=== PATIENT | female | born 2000 | race Caucasian/White ===

== ENCOUNTER 2025-04-03 02:41 | Emergency (ER) | payer OTHER, SELFPAY ==
--- NOTE | ~2025-04-03 | XR_ITS ---
CLINICAL HISTORY: fall 3 views right ankle Comparison: None provided Findings: There is lateral soft tissue swelling. There is no fracture or dislocation. Joint spaces appear normal. Impression: No osseous abnormality. This document has been electronically signed by: Tl Rider MD on 04/03/2025 03:52:57
[2025-04-03 02:45] VITALS: BP 128/73; PULSE 100; RESP 15; TEMP 36.6; O2SAT 99; BMI 27.4
--- NOTE | 2025-04-03 03:12 | PC.NURSE ---
Assumed care of pt, presents with right ankle pain after jumping and rolling ankle while outside, +2 pedal pulses, no headstrike, -LOC, swelling to the right ankle, unable to bear weight, aaox4
--- OUTSIDE RECORDS SUMMARY | 2025-04-03 03:17 | XMS_ITS | Clinical Summary ---
Author Organization [facility] Address [address] [place] [address] Phone Care Team Providers Care Pipe Fitter Maintenance Name Role Phone Fatimah Pinto MD Primary Care Provider [phone] Allergies Active Allergy Reactions Criticality Noted Date Comments Amoxicillin Medium 04/23/2024 Covid-19 Vaccine, Bivalent, Mrna (Moderna) Wheezing High 11/04/2022 Latex Rash Medium 02/16/2021 Penicillins Rash Medium 11/16/2005 Vancomycin Itching Medium 11/25/2023 IV Medications medroxyPROGESTE Pramod 150 mg/mL injection Inject 1 mL (150 mg total) into the shoulder, thigh, or buttocks every 3 (three) months. Active fexofenadine (TRAN) 180 mg tablet Take 1 tablet (180 mg total) by mouth 1 (one) time each day. 90 tablet 1 5 Active acetaminophen (TYLENOL) 500 mg tablet Take 2 tablets (1,000 mg total) by mouth every 8 (eight) hours if needed for mild pain. 60 tablet 5 Active ibuprofen (ADVIL,MOTRIN) 600 mg tablet Take 1 tablet (600 mg total) by mouth every 8 (eight) hours if needed for moderate pain. 30 tablet 5 Active oxyCODONE (ROXICODONE) 5 mg immediate release tablet Take 1 tablet (5 mg total) by mouth every 4 (four) hours if needed for severe pain. Max Daily Amount: 30 mg 10 tablet 5 Active fluticasone propionate (FLONASE) 50 mcg/actuation nasal spray ADMINISTER 1 SPRAY INTO EACH NOSTRIL 2 TIMES A DAY. 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 Kidney function is normal. Her risk of developing end stage kidney disease because of it is quite low. She is at risk for hyperfiltration injury and we discussed risk factor for CKD that could affect a solitary kidney. Follow kidney function and electrolytes urine protein to creatinine ratio Avoid NSAID Last Assessment & Plan: 1-20 u/s for /incidential finding/ref adult nephrology Encounters Date Type Department Care Team Description 03/27/2025 3:45 PM EDT Treatment [facility] [address] [place] [phone] Gabbie Bajwa OT Left wrist pain (Primary Dx) 03/19/2025 3:45 PM EDT Treatment [facility] Occupational Therapy [address] [place] [phone] Gabbie Bajwa OT Left wrist pain (Primary Dx) 03/18/2025 9:30 AM EDT Office Visit Orthopedic Surgery - [place] 175 [facility] [address] [place] [phone] Kathrine White MD Subluxation of left extensor carpi ulnaris tendon, sequela (Primary Dx) 03/12/2025 9:00 AM EDT Treatment [facility] Occupational Therapy [address] [place] [phone] Gabbie Bajwa OT Left wrist pain (Primary Dx) 03/07/2025 9:00 AM EDT Treatment [facility] Occupational Therapy [address] [place] [phone] Gabbie Bajwa OT Left wrist pain (Primary Dx) 03/05/2025 Telephone Orthopedic [facility] [address] [facility] [address] [place] [phone] Kathrine White MD 02/28/2025 9:15 AM EDT Treatment [facility] Occupational Therapy [address] [place] [phone] Gabbie Bajwa OT Left wrist pain (Primary Dx) 02/20/2025 9:00 AM EDT Treatment [facility] Occupational Therapy [address] [place] [phone] Gabbie Bajwa OT Left wrist pain (Primary Dx) 02/12/2025 11:00 AM EDT Evaluation [facility] Occupational Therapy [address] [place] [phone] Gabbie Bajwa OT Left wrist pain (Primary Dx); Subluxation of left extensor carpi ulnaris tendon, subsequent encounter; Surgery follow-up 02/12/2025 Plan of Care Documentation [facility] Occupational Therapy [address] [place] [phone] 02/05/2025 9:30 AM EDT Office Visit Orthopedic [address] [phone] Kathrine White MD Extensor carpi ulnaris tendinitis (Primary Dx); Subluxation of left extensor carpi ulnaris tendon, subsequent encounter; Surgery follow-up 01/17/2025 2:00 PM EDT Office Visit [address] [phone] Sondra Keen PA Surgery follow-up (Primary Dx) from Last 3 Months Immunizations Name Administration Dates Next Due DTaP (Infanrix) 6wks to less than 7yo ,01/13/2004,01/04/2003,11/12,2002 DTaP / Hib 01/13/2004 AJcK-HLR-DIN (Pentacel) 2mo to less than 5yo 01/13/2004,01/04/2003,2002,09/07 HPV 9-valent (Gardisil) 9yo to less than 46yo 03/09/2016 HPV, Quadrivalent 05/03/2014 Hepatitis B Pediatric (Enger ix B; Recombivax HB) to less than 20 yo 04/23/2003,2002,2002 Hib (HbOC) 01/04/2003,2002,2002 IPV Inactivated polio (Ipol) 6wks and older 10/18/2007,07/28/2003,2002,09/07 Influenza trivalent, 0.5mL, preservative free (Fluarix; FluLaval; Fluzone) ages 6mo and older (Afluria) 3 years and older 07/25/2019,04/04/2015 Influenza trivalent, with pr eservative (Fluzone; Afluria) 6mo and older 07/01/2005 MMR, measles mumps and rubel la Live (Priorix; M-M-R II) 12mo and older 10/18/2007,01/13/2004 Meningococcal MCV4P 07/25/2019,09/06/2013 Pneumococcal Conjugate Vacci ne, 7 Valent 07/26/2003,01/04/2003,2002,09/07 Tdap Tetanus diptheria acell ular pertussis (Boostrix; Adacel) 7yo and older 11/16/2019,09/06/2013 Varicella live (Varivax) 12m o and older 10/18/2007,07/26/2003 Surgical History Surgery Date Site/Laterality Comments OTHER SURGICAL HISTORY 09/11/2014 Bilateral PROCEDURE: AZ TONSILLECTOMY & ADENOIDECTOMY AGE 14/> OTHER SURGICAL HISTORY 07/11/2014 PROCEDURE: AZ WEDGE EXCISION SKIN NAIL FOLD OTHER SURGICAL HISTORY 09/2020 PROCEDURE: AZ EXCISION VAGINAL SEPTUM OTHER SURGICAL HISTORY Right PROCEDURE: HISTORICAL ARM SURGERY WRIST SURGERY 10/17/2023 Right PROCEDURE: HISTORICAL WRIST SURGERY; COMMENT: stabilization of right extensor carpi ulnaris tendon SECTION, LOW TRANSVERSE NO PAST SURGERIES WRIST SURGERY 12/19/2024 Left ECU stabilization/arthroscopy left wrist Medical History Medical History Date Comments Unspecified family circumstance DX:Unspecified family circumstance; COMMENT: 2002 53A Acute suppurative otitis med ia without spontaneous rupture of eardrum DX:Acute suppurative otitis media without spontaneous rupture of eardrum Wheezing DX:Wheezing Undiagnosed cardiac murmurs 06/14 DX:U ndiagnosed cardiac murmurs; COMMENT: functional murmur Panic attack x2 admitted wing hosp DX:Panic a ttack; COMMENT: overnight Lingular pneumonia 07-16 DX:Lingular p neumonia Acute sinusitis, unspecified 04/04/2006 DX: Acute sinusitis, unspecified Acute suppurative otitis med ia without spontaneous rupture of ear drum 04/04/2006 DX:Acute suppurative otitis media without spontaneous rupture of ear drum; COMMENT: IMO update Difficulty with family 11/17/2017 DX:Diffic ulty with family; COMMENT: 11-25 DCF 53 A active case Anxiety and depression DX:Anxiet y and depression Unilateral congenital absenc e of kidney 10/18/2019 DX:Unilateral congenital absence of kidney Family History Medical History Relation Name Comments No Known Problems Brother No Known Problems Father No Known Problems Maternal Grandfather ne thony met No Known Problems Maternal Grandmother No Known Problems Mother Ovarian cancer Other 1 mat GGM Cervical cancer Other 2 a couple of my mothers cousins Allergies Paternal Grandfather Asthma Paternal Grandfather Dementia Paternal Grandfather No Known Problems Paternal Grandmother s ick from smoking all the time Breast cancer Neg Hx Uterine cancer Neg Hx Relation Name Status Comments Brother Alive Lamine 01/22/05 Father Alive Yahir 12/21/76/ smoker Maternal Grandfather Other Maternal Grandmother Alive Mother Alive Steph jamison 06/12/82 /parents living together 2001/ 2005/mom remarried 09/14 Other 1 mat GGM Alive Other 2 Paternal Grandfather Paternal Grandmother Social History Tobacco Use Types Packs/Day Years Used Date Smoking Tobacco: Never Smokeless Tobacco: Never Tobacco Cessation:Counseling Given: Not Answered Alcohol Use Standard Drinks/Week Comments Yes 0 (1 standard drink = 0.6 oz pur e alcohol) social Comments No Sex and Gender Information Value Date Recorded Sex Assigned at Female 02/14/2025 12:53 PM EDT Legal Sex Female 7:07 AM EST Gender Identity Female 02/14/2025 12:53 PM EDT Sexual Orientation Choose not to disclose 2024 12:53 PM EDT Obstetrics History Last Filed Vital Signs Vital Sign Reading Time Taken Comments Blood Pressure 126/73 12/19/2024 6:47 PM EDT Pulse 97 12/19/2024 6:47 PM EDT Temperature 36.7 C (98 F) 12/19/2024 6:47 PM EDT Respiratory Rate 18 12/19/2024 6:47 PM EDT Oxygen Saturation 94% 12/19/2024 6:47 PM EDT Inhaled Oxygen Concentration - - Weight 68 kg (150 lb) 03/18/2025 9:25 AM EDT Height 157.5 cm (5' 2 ) 03/18/2025 9:25 AM EDT Body Mass Index 27.44 03/18/2025 9:25 AM EDT Plan of Treatment Upcoming Encounters Date Type Department Care Team (Late st Contact Info) Description 04/03/2025 3:45 PM EDT Treatment [facility] [address] [phone] Gabbie Bajwa, OT 04/10/2025 3:45 PM EDT Treatment [facility] [address] [place] [phone] Gabbie Bajwa, OT 04/17/2025 3:45 PM EDT Treatment [facility] [address] [phone] Gabbie Bajwa, OT 04/24/2025 3:45 PM EDT Treatment [facility] [address] [phone] Gabbie Bajwa, OT 04/29/2025 9:30 AM EDT Office Visit Orthopedic Surgery - [place] 175 [facility] [address] [place] [phone] Kathrine White MD [address] [place] [phone] 06/11/2025 4:30 PM EST Office Visit Adult Medicine [facility] [address] [place] [phone] Fatimah Pinto MD [address] [place] [phone] Health Maintenance Due Date Last Done Comments Meningococcal B Vaccine (1 of 2 - Standard) 2018 HIV Screening 06/19/2022 Hepatitis C Screening 06/19/2022 Social Influencers of Health Screening 06/19/2022 Depression Screening 07/11/2024 Influenza Vaccine (#1) 2025 , 04/04/2015, 07/01/2005 Gonorrhea/Chlamydia Screening 12/07/2025 12/07/2024, 12/31/2020 Cervical Cancer Screening: Pap Smear 06/10/2026 06/10/2023, 06/10/2023, 06/10/2023 DTaP,Tdap,and Td Vaccines (8 - Td or Tdap) 11/15/2029 11/16/2019, 09/06/2013, 10/18/2007, Additional history exists Cholesterol Screening (Lipid Panel) 12/07/2029 12/07/2024, 11/29/2023, 11/29/2023 RSV Immunization Adult Patients (1 - 1-dose 75+ series) 2077 Hepatitis B Vaccines Completed 04/23/2003, 2002, 2002 Pneumococcal Vaccine: Pediatrics (0 to 5 Years) and At-Risk Patients (6 to 49 Years) Completed 07/26/2003, 01/04/2003, 2002, Additional history exists HIB Vaccines Completed 01/13/2004, 11/2003, 01/04/2003, Additional history exists IPV Vaccines Completed 10/18/2007, 11/2003, 07/28/2003, Additional history exists MMR Vaccines Completed 10/18/2007, 01/13/2004 Varicella Vaccines Completed 10/18/2007, 07/26/2003 HPV Vaccines Completed 03/09/2016, 05/03/2014 Meningococcal ACWY Vaccine Completed 07/25/2019, COVID-19 Vaccine Discontinued 03/10/2021, 02/10/2021 Hepatitis A Vaccines Aged Out No long er eligible based on patient's age to complete this topic RSV Immunization Patients Under 20 months Aged Out No longer eligible based on patient's age to complete this topic Goals Goal Patient Goal Type Associated Problems Recent Progress Patient-Stated? Author <enter goal here> General Yes Gabbie Bajwa, OT Note: OT PATIENT GOAL REGAIN FULL USE LEFT UE AND RTW OT STGS 8 TO 12 VISITS General On track( 025 4:45 PM EDT) No Gabbie Bajwa, OT Note: # 1 PARTICIPATE IN SCAR MANAGEMENT TO HAVE NO ADHERENCE/ MILD 03/19 # 2 IMPROVE LEFT SHOULDER FLEXION FROM 135 TO 160 DEGREES FOR OVERHEAD REACH # 3 IMPROVE LEFT ELBOW EXTENSION FROM - 20 TO A NEUTRAL 0 DEGREES UPON REACH # 4 IMPROVE LEFT SUPINATION FROM 20 TO 60 DEGREES TO RECEIVE ITEMS INTO PALM # 5 IMPROVE WRIST EXTENSION FROM 25 TO 60 DEGREES WITH GOOD STRENGTH TO WEIGHTBEAR # 6 ACHIEVE LEFT SURVEY RESEARCH PROFESSOR TO AT LEAST 32 POUNDS = 50 PERCENT OF THE RIGHT/ AT 25 POUNDS ON 03/19 Medical Devices Implanted Type Area Professor Of Geology Device Identifier Shelf Expiration Date Model / Serial / Lot [place] Sut Quick Mini 3-0 Orth - Sn/A - [id number] Implanted:Qty: 1 on 12/19/2024 by Kathrine White MD at [facility] [employer] Sports Med Left: Wrist JNJ DEPUY MITEK 01/07/2027 [id number] / N/A / [id number] [place] Sut Quick+ Mini Orthcrd #0 Orthocord W/Drillbit - Sn/A - [id number] Implanted:Qty: 1 on 12/19/2024 by Kathrine White MD at [facility] [employer] Sports Med Left: Wrist JNJ DEPUY MITEK 05/10/2027 [id number] / N/A / [id number] Procedures Procedure Name Priority Date/Time Associated Diagnosis Comments SPLINT APPLICATION Routine 01/17/2025 2: 31 PM EDT Surgery follow-up LIPID PANEL WITH REFLEX TO DIRECT LDL Routine 12/07/2024 9:16 AM EDT Routine physical examination CHLAMYDIA TRACHOMATIS AND NEISSERIA GONORRHOEAE PCR Routine 12/07/2024 9:15 AM EDT Screen for sexually transmitted diseases HM HPV Routine 06/10/2023 from Last 3 Months or Most Recently Relevant to Health Maintenance Results * Splint Application (01/17/2025 2:31 PM EDT) Narrative Kathrine White MD - 01/17/2025 2:31 PM EDT ARLEEN Townsend 01/17/2025 2:37 PM Splint Application Date/Time: 01/17/2025 2:31 PM Performed by: ARLEEN Townsend Authorized by: ARLEEN Townsend Injury Location details: left elbow Pre-procedure assessment Distal perfusion: normal Distal sensation: normal Range of motion: normal Procedure Immobilization: splint Splint/Brace type: sugar tong Supplies used: cotton padding and Ortho-Glass us Sondra BACON IN CLINIC/BEDSIDE ORDERABLES Final Result * (ABNORMAL) Lipid panel with reflex to direct LDL (12/07/2024 9:16 AM EDT) Cholesterol 161 0 - 200 mg/dL LAB CHEMISTRY METHOD 12/07/2024 1:23 PM EDT [facility] Triglycerides 83 0 - 150 mg/dL LAB CHEMISTRY METHOD 12/07/2024 1:23 PM EDT [facility] HDL 42 >=40 mg/dL LAB CHEMISTRY METHOD 12/07/2024 1:23 PM EDT [facility] LDL Calculated 102(H) 0 - 100 mg/dL LAB CHEMISTRY METHOD 12/07/2024 1:23 PM EDT [facility] VLDL Cholesterol Radu 16.6 mg/dL LAB CHEMISTRY METHOD 12/07/2024 1:23 PM EDT [facility] Non HDL Chol. (LDL+VLDL) 119 <145 mg/dL LAB CHEMISTRY METHOD 12/07/2024 1:23 PM EDT [facility] Chol/HDL Ratio 3.8 0.0 - 4.4 LAB CHEMISTRY METHOD 12/07/2024 1:23 PM EDT [facility] Blood Venous blood specimen / Unknown Venipuncture / Unknown 12/07/2024 9:16 AM EDT 12/07/2024 9:16 AM EDT Kiesha BACON LAB BLOOD ORDERABLES Final Res ult [facility] [address] [place] [address], [place] [phone] * Chlamydia trachomatis and Neisseria gonorrhoeae molecular study (12/07/2024 9:15 AM EDT) [facility] Neisseria gonorrhoeae PCR Negative Negative LAB MOLECULAR DIAGNOSTICS METHOD 12/08/2024 9:37 AM EDT [facility] Chlamydia trachomatis PCR Negative Negative LAB MOLECULAR DIAGNOSTICS METHOD 12/08/2024 9:37 AM EDT [facility] Urine Urine specimen from urethra / Unknown Non-blood Collection / Unknown 12/07/2024 9:15 AM EDT 12/07/2024 9:15 AM EDT Kiesha BACON LAB MICROBIOLOGY - GENERAL ORD ERABLES Final Result [facility] [address] [place] [address], [place] [phone] * Cervical Cancer Screening: HPV (06/10/2023) [facility] Cervical Cancer Screening: HPV No interpreta tion,abstr acted Historical Provider HEALTH MAINTENANCE Final Result from Last 3 Months or Most Recently Relevant to Health Maintenance Insurance [employer] Advance Directives * Full Code - Default (Latest Code Status on File) Date Activated Date Inactivated Comments 12/19/2024 11:28 AM 12/19/2024 9:48 PM This is ord er is used when code status has not been discussed with the patient, or code status is otherwise unknown/unconfirmed To update the patient's code status, place a code status order. Do not modify or discontinue any currently active code status orders. Care Teams Pipe Fitter Maintenance Relationship Specialty Start Date End Date Fatimah Pinto MD [address] [place] [phone] PCP - General 11/01/22
--- NOTE | 2025-04-03 05:03 | ED_ITS ---
HPI - Extremity Injury (Lower) General Chief Complaint: Extremity Injury, Lower Stated Complaint: right ankle injury Time Seen by Provider: 04/03/25 04:48 Source: patient Mode of arrival: ambulatory Limitations: no limitations History of Present Illness ED Provider: Dru BACON HPI Narrative: The patient is a 24-year-old female presenting to the ED reporting approximately 8 hours ago she was [place] when she landed awkwardly on her right lower extremity suffering an inversion injury with subsequent swelling of the right lateral malleolus. The patient reports she has been able to bear weight but only with severe pain. The patient denies any fall to the ground, head strike, or other acute injury, denies previous injury or surgical intervention of the affected extremity. The patient has not taken any medication for pain prior to arrival in the ED. Related Data Allergies Allergy/AdvReac Type Severity Reaction Status Date / Time amoxicillin Allergy Anaphylaxis Verified 04/03/25 02:47 Penicillins Allergy Anaphylaxis Verified 04/03/25 02:47 vancomycin Allergy Hives Verified 04/03/25 02:47 Review of Systems Review of Systems: Yes all other systems are reviewed and are negative PMFSH Social History Social History Advance Directives: No Do you have a plan to hurt others: No Plan Physical Exam Vital Signs: Vital Signs: Last Vital Signs Temp 97.8 F 04/03/25 02:45 Pulse 100 04/03/25 02:45 Resp 15 04/03/25 02:45 BP 128/73 04/03/25 02:45 Pulse Ox 99 04/03/25 02:45 O2 Del Method Room Air 04/03/25 02:45 BMI result Body Mass Index 27.4 CONSTITUTIONAL: The patient appears non-toxic, well nourished and in no acute distress. Vital signs as documented. HEAD: Atraumatic, normocephalic. EYES: EOMs grossly intact, pupils equal, conjunctiva clear, no exudate. ENT: Nares patent, no discharge. Airway patent, no audible stridor, visible mucosa is pink and moist without noted lesions. NECK: trachea is midline, no obvious masses or gross abnormalities. CHEST: Symmetric movement, normal appearance. LUNGS: Non-labored work of breathing. CARDIAC: No evidence of hypoperfusion. ABDOMEN: Nondistended, no obvious injury. : Deferred. EXTREMITIES: There is swelling with mild contusion of the inferior aspect of the lateral malleolus, distal CSM intact, 2+ DP/PT pulses. No crepitus or bony tenderness. No calf tenderness. Moves all other extremities spontaneously without reported pain. No other obvious injury or deformity noted. NEURO: Alert and oriented x3, CN II-XII appear grossly intact. Cerebellar Functioning grossly intact. Speech clear and appropriate. SKIN: Warm, dry, color appropriate. No rashes or lesions noted. Medical Decision Making Medical Decision Making MDM Narrative: 5:18 AM 04/03/2025 (Peter BACON): The patient is a 24-year-old female presenting to the ED reporting approximately 8 hours ago she was [place] when she landed awkwardly on her right lower extremity suffering an inversion injury with subsequent swelling of the right lateral malleolus. The patient reports she has been able to bear weight but only with severe pain. The patient denies any fall to the ground, head strike, or other acute injury, denies previous injury or surgical intervention of the affected extremity. The patient has not taken any medication for pain prior to arrival in the ED. On exam patient has swelling with a mild contusion of the inferior aspect of the lateral malleolus, distal CSM intact, 2+ DP/PT pulses. No crepitus or bony tenderness. No calf tenderness. The patient's x-ray shows no evidence of acute fracture. Patient is likely suffering from a high-grade sprain/strain, we will treat with crutches, boot, and weight-bearing as tolerated. We will discharge with ANSARI, supportive care, and PCP follow up. Admission/Observation Consideration of admission/observation: Escalation of care including admission/observation considered Radiology Impression Discussion of test interpretation with radiology: I have reviewed the radiologist's reading. Radiologist Impression: CLINICAL HISTORY: fall 3 views right ankle Comparison: None provided Findings: There is lateral soft tissue swelling. There is no fracture or dislocation. Joint spaces appear normal. Impression: No osseous abnormality. This document has been electronically signed by: Tl Rider MD on 04/03/2025 03:52:57 Dictated By: Tl Rider MD Signed By: <Electronically signed by Tl Rider MD in OV> 04/03/25 0354 Discharge Plan Discharge Clinical Impression: Ankle sprain and strain Patient Disposition: Home, Self-Care Instructions: Ankle Sprain (ED), Crutch Instructions (ED), P.R.I.C.E. Treatment (ED), Ankle Strain (ED) Additional Instructions: Thank you for choosing [facility]'s Emergency Department for your care today. Thankfully your x-ray shows no evidence of acute fracture. At this time there is no indication for admission to the hospital or continued ED observation, and it is safe to discharge you home. Your exam is consistent with a high-grade ankle sprain/strain. Please wear the boot and use the crutches provided to bear weight only as tolerated. You should take alternating (staggered) doses of ibuprofen 600mg and Tylenol 1000mg every 4 hours as needed for any additional pain. Please elevate and rest the injured area, and apply ice for 20 minutes every hour. We have treated you with a lidocaine patch, if you find this provides you significant relief additional patches can be purchased at any local pharmacy without a prescription. Please follow up with your primary care physician for re-evaluation, additional management of your symptoms, and continued preventative care. If you do not have a primary care physician, please call the [facility] at [phone] to establish a new primary care physician. While waiting to establish your new primary care physician, you can call our Walk-in Care Clinic at [phone] for non-emergency needs. Please return to the emergency department if you develop a severe or sudden change in your symptoms, a fever over 100.4 that does not improve with Tylenol or Ibuprofen, recurrent vomiting, or any other new or worsening symptoms or concerns. Referrals: Fatimah Pinto MD [Primary Care Provider, Internal Medicine] Clinical Impression: Ankle sprain and strain Stand Alone Forms: Work/School Release Print Language: Georgian
[2025-04-03] MEDS: Lidocaine 4 % Patch ADH..PATCH 1 PATCH TRANSDERMA (05:24)
[2025-04-03 05:50] VITALS: BP 130/73; PULSE 86; RESP 15; TEMP 36.6; O2SAT 99
== END 2025-04-03 06:07 | disposition home or self-care (01) ==
PROVIDERS: Emergency Provider Emergency Medicine; PCP Internal Medicine
DX: S93.401A Sprain of unspecified ligament of right ankle, initial encounter (principal); X50.1XXA Overexertion from prolonged static or awkward postures, initial encounter; X50.9XXA Other and unspecified overexertion or strenuous movements or postures, initial encounter; Y93.41 Activity, dancing; Y92.89 Other specified places as the place of occurrence of the external cause; Y99.8 Other external cause status
CPT/HCPCS: 73610; 99283; 99284

== ENCOUNTER → 2025-04-03 02:55 | Outpatient (BNV) | payer OTHER, SELFPAY | PROVIDERS: PCP Internal Medicine; Visit Provider Radiology Diagnostic Radiology | DX: S99.911A Unspecified injury of right ankle, initial encounter (principal); W19.XXXA Unspecified fall, initial encounter | CPT/HCPCS: 73610 ==